=== PATIENT | male | born 1950 | race Caucasian/White ===

== ENCOUNTER 2019-11-10 00:52 | Outpatient (CLI) | payer MEDICARE, SELFPAY ==
--- NOTE | 2019-11-10 | DI.NM_ITS ---
APPROVED REPORT Exam: Exercise Treadmill Patient Location: Out-Patient Room/Bed: Stress Nurse: Bárbara Guy RN BMI: 29.52 Baseline Rhythm: Sinus Rhythm Indications: Patient reports getting sick in April with what he thinks was the Covid virus; he was given steroids and antibiotics at that time. In August he states he had intermittent ???chest pressure w ith walking??? where he needed to ???stop for a few minutes??? and since then he has been having SOB with exertion. Medical History Medical History: Obesity, GERD. Cardiac Medications: Aspirin, Atorvastatin. Allergies: No known drug allergies Cardiac Risk Factors: Hyperlipidemia, Asthma Previous Cardiac Procedures: None Pretest Chest Pain Characteristics: None Exercise History: Physically active Physical Disabilities: None Lung Sounds: Crackles in right base. Heart Sounds: Regular Stress Test Details Test: Exercise stress testing was performed using a Boni protocol. Nuclear Acquisition: Rest Tc-99m/Stress Tc-99m 1 day Rest Isotope: Tc-99m Sestamibi. Dose: 11.6 Date: 11/10/2019 Injection Time: 0915 Stress Isotope: Tc-99m Sestamibi. Dose: 32.2 Date: 11/10/2019 Injection Time: 1050 HR Resting HR Supine: 68 bpm Max Heart Rate (APMHR): 151 bpm Resting HR Standin bpm Target HR (85% APMHR): 128 bpm Max HR Achieved: 150 bpm % of APMHR: 99 HR response to stress: Normal HR response to stress BP Resting BP Supine: 146/90 mmHg Resting BP Standin/92 mmHg Max BP: 194/82 mmHg BP response to stress: Normal blood pressure response to stress. ECG Resting ECG: Sinus Rhythm Stress ECG: Sinus Tachycardia ST Change: No significant St segment changes noted. Arrhythmia: None Recovery ECG: Sinus Rhythm Recovery ST Change: Normal Recovery Arrhythmia: None Clinical Reason for Termination: Fatigue, Dyspnea Stress Symptoms: None reported per patient. Exercise duration: 6 min2 sec Highest Stage Reached: Stage 3: 3.4 mph at 14% grade. Exercise capacity: 7.09 METs Functional Capacity: Mildly deminished capacity Stress ECG Conclusion 1. The patient exercised for 6 minutes (7 METS). There were no symptoms suggestive of ischemia durin g exertion. 2. Patient had no evidence of ischemia on the ECG portion of the exam. Stress Test Summary STAGE Time (mins) Speed (mph) Grade (%) HR BP SYMPTOMS METS Supine 68 146/90 Standing 78 154/92 1 3 1.7 10 124 178/102 4.6 2 6 2.5 12 148 7 1 min recovery 124 194/82 3 min recovery 98 188/84 6 min recovery 90 168/90 9 min recovery 88 154/92 MPI Conclusion The ejection fraction was 55% with stress. There were no wall motion abnormalities. There is no evidence of ischemia on the imaging portion of the exam. This represents a normal SPECT stress test. Radiologist Interpretation Radiologist Interpretation by: Carlos Eduardo Rubi MD Interpretation Date/Time: 11/10/2019 15:45:12
== END 2019-11-10 01:12 ==
PROVIDERS: PCP Family Medicine; Visit Provider Internal Medicine Interventional Cardiology
DX: R07.9 Chest pain, unspecified (principal)
CPT/HCPCS: 78452; 93016; 93018; 93017